=== PATIENT | female | born 1945 | race Caucasian/White ===

== ENCOUNTER → 2017-05-23 | Outpatient (CLI) | payer MEDICARE, OTHER | LOC: MC.RAD 08:04 | DX: Z12.31 Encounter for screening mammogram for malignant neoplasm of breast (principal); N64.89 Other specified disorders of breast ==

== ENCOUNTER → 2017-06-06 | Outpatient (CLI) | payer MEDICARE, OTHER | LOC: MC.RAD 07:17 | DX: N64.89 Other specified disorders of breast (principal) ==

== ENCOUNTER → 2018-07-31 | Outpatient (CLI) | payer MEDICARE, OTHER | LOC: MC.RAD 07:15 | DX: Z00.00 Encounter for general adult medical examination without abnormal findings (principal); Z12.31 Encounter for screening mammogram for malignant neoplasm of breast ==

== ENCOUNTER → 2019-09-27 | Outpatient (CLI) | payer MEDICARE, OTHER | LOC: COL.PUL 16:39 | DX: R42 Dizziness and giddiness (principal); R25.1 Tremor, unspecified ==

== ENCOUNTER → 2019-11-19 | Outpatient (CLI) | payer MEDICARE, OTHER | LOC: COL.RAD 06:49 | DX: Z01.812 Encounter for preprocedural laboratory examination (principal); G31.9 Degenerative disease of nervous system, unspecified | CPT/HCPCS: A9585 ==

== ENCOUNTER → 2020-02-04 | Outpatient (CLI) | payer MEDICARE, OTHER | LOC: COL.RAD 09:04 | DX: S43.492A Other sprain of left shoulder joint, initial encounter (principal); M19.012 Primary osteoarthritis, left shoulder; M75.82 Other shoulder lesions, left shoulder ==

== ENCOUNTER 2020-12-26 13:22 | Emergency (ER) | payer MEDICARE, OTHER ==
[~2020-12-26] VITALS: Ht 172.7 cm; Wt 65.9 kg
[2020-12-26 14:10] LABS: BASO % 0.6 % (0.0-2.0); EOS # 0.1 (0.0-0.7); EOS % 0.9 % (0-4.0); GRAN # 4.2 (1.4-6.5); GRAN % 60.8 % (42.2-75.2); HEMOGLOBIN 11.5 g/dl (12.5-16.0); LYMPH # 2.1 (1.2-3.4); LYMPH % 30.6 % (20.0-51.0); MEAN CELL VOLUME 96 fl (80.0-100.0); MEAN CORPUSCULAR HEMOGLOBIN 31 pg (27.0-31.0); MEAN CORPUSCULAR HGB CONC 32 g/dl (33.0-37.0); MEAN PLATELET VOLUME 10.9 fl (7.4-10.4); MONO # 0.5 (0.1-0.6); MONO % 6.8 % (1.7-9.3); PLATELET COUNT 223 K/mm3 (130-400); RED BLOOD COUNT 3.74 M/mm3 (4.10-5.30); REDCELL DISTRIBUTION WIDTH-CV 12.4 % (11.5-14.5)
[2020-12-26 14:11] LABS: HEMATOCRIT 35.8 % (37.0-47.0)
[2020-12-26 14:12] LABS: COLLECTION METHOD CLEAN CATCH
[2020-12-26 14:12] LABS: PROTHROMBIN TIME 11.5 SECONDS (9.7-12.8)
[2020-12-26 14:15] LABS: ALBUMIN 4.4 gm/dL (3.5-5.0); BILIRUBIN,TOTAL 0.4 mg/dL (0.0-1.0); CALCIUM 10.2 mg/dL (8.4-10.2); CREATININE, serum 1.31 (0.52-1.25); PARTIAL THROMBOPLASTIN TIME 32.1 SECONDS (26.0-37.0); TOTAL PROTEIN 7.8 gm/dL (6.4-8.2)
[2020-12-26 14:19] LABS: POTASSIUM 4.6 mmol/L (3.4-5.0)
[2020-12-26 14:21] LABS: MUCOUS Present /lpf; PH 5 (5-8); SQUAMOUS EPITHELIAL 0-2 /hpf; URINE APPEARANCE Cloudy; URINE BACTERIA None Seen /hpf; URINE BILIRUBIN Negative (NEGATIVE); URINE BLOOD Negative (NEGATIVE); URINE COLOR Yellow; URINE GLUCOSE Negative (NEGATIVE); URINE KETONE Trace (NEGATIVE); URINE LEUKOCYTE ESTERASE Negative (NEGATIVE); URINE NITRATE Negative (NEGATIVE); URINE PROTEIN(semi-quant) Negative (NEGATIVE); URINE RBC >50 /hpf; URINE UROBILINOGEN Negative (NEGATIVE)
[2020-12-26] MEDS ORDERED: CEPHALEXIN500 M1 PO (15:18)
[2020-12-26 15:30] VITALS: BP 178/63; PULSE 63; TEMP 97.2
== END 2020-12-26 15:47 | disposition home or self-care (01) ==
LOC: COL.ER 13:22
PROVIDERS: Emergency Medicine
DX: N39.0 Urinary tract infection, site not specified (principal); R41.82 Altered mental status, unspecified; Z88.2 Allergy status to sulfonamides
CPT/HCPCS: J0696

== ENCOUNTER 2021-03-10 09:32 | Outpatient (CLI) | payer MEDICARE, OTHER ==
[2021-03-10] VITALS (9 sets, daily range): BP systolic 124–154; BP diastolic 52–66; PULSE 36–75
[~2021-03-10] VITALS: Ht 172.7 cm; Wt 61.5 kg
[~2021-03-10 09:32] MED LIST: CEPHALEXIN500 M1 PO
[2021-03-10] MEDS ORDERED: GLUCOPHAGE1000 MG PO (09:55)
[2021-03-10] MEDS ORDERED: TENORMIN 5050 MG/TAB PO (09:55)
[2021-03-10] MEDS ORDERED: LIPITOR 80MG80 MG PO (09:56)
[2021-03-10] MEDS ORDERED: CALCIUM CARBON650 M2 PO (09:56)
[2021-03-10 11:39] LABS: GLUCOSE,CSF 59 mg/dL (40-70)
[2021-03-10 12:17] LABS: CSF APPEARANCE CLEAR; CSF COLOR COLORLESS
[2021-03-10 12:18] LABS: CSF RBC 65 /mm3 (0-0)
[2021-03-10 12:46] LABS: CSF MONONUCLEAR 75 % (70-100); CSF POLYMORPHONUCLEAR 25 % (0-6)
[2021-03-13 13:02] LABS: CSF OLIG BD INTERPRETATION 0 bands (<2); SE OLIGOCLONAL BANDING 1 bands (())
== END 2021-03-10 15:52 | disposition home or self-care (01) ==
LOC: COL.RAD 09:32
PROVIDERS: Psychiatry & Neurology Neurology
DX: R41.82 Altered mental status, unspecified (principal)

== ENCOUNTER 2021-04-30 06:55 | Outpatient (CLI) | payer MEDICARE, OTHER ==
[~2021-04-30] VITALS: Ht 172.7 cm; Wt 63.3 kg
[~2021-04-30 06:55] MED LIST changes: +CALCIUM CARBON650 M2 PO; +GLUCOPHAGE1000 MG PO; +LIPITOR 80MG80 MG PO; +TENORMIN 5050 MG/TAB PO
[2021-04-30] MEDS ORDERED: ASPI325T6 PO (08:12)
[2021-04-30] MEDS ORDERED: ARICEPT 5MG PO (08:12)
[2021-04-30] MEDS ORDERED: VITAMIN B11000 MCG/M IM (08:13)
[2021-04-30 08:21] LABS: MEAN CELL VOLUME 98 fl (80.0-100.0); MEAN CORPUSCULAR HGB CONC 31 g/dl (33.0-37.0); MEAN PLATELET VOLUME 10.4 fl (7.4-10.4); PLATELET COUNT 258 K/mm3 (130-400); REDCELL DISTRIBUTION WIDTH-CV 13.4 % (11.5-14.5)
[2021-04-30 08:25] VITALS: BP 153/71; PULSE 64; TEMP 98
[2021-04-30 08:25] LABS: HEMATOCRIT 31.3 % (37.0-47.0); HEMOGLOBIN 9.8 g/dl (12.5-16.0); MEAN CORPUSCULAR HEMOGLOBIN 31 pg (27.0-31.0)
[2021-04-30 08:28] LABS: PROTHROMBIN TIME 11.2 SECONDS (9.7-12.8)
[2021-04-30 08:37] LABS: ALANINE AMINOTRANSFERASE 23 U/L (4-34); ALBUMIN 3.7 gm/dL (3.5-5.0); ALKALINE PHOSPHATASE 90 U/L (50-136); ANION GAP 6 mmol/L (7-16); AST,SGOT 31 U/L (15-37); BILIRUBIN,TOTAL 0.4 mg/dL (0.0-1.0); BLOOD UREA NITROGEN 23 mg/dL (7-17); CALCIUM 9.5 mg/dL (8.4-10.2); CARBON DIOXIDE 30 mmol/L (22-30); CHLORIDE 102 mmol/L (98-107); CREATININE, serum 1.09 (0.52-1.25); GLUCOSE 100 mg/dL (74-106); MAGNESIUM 1.1 mg/dL (1.6-2.3); POTASSIUM 5.1 mmol/L (3.4-5.0); SODIUM 137 mmol/L (137-145); TOTAL PROTEIN 6.5 gm/dL (6.4-8.2)
[2021-04-30] MEDS ORDERED: CEPHALEXIN500 M1 PO (09:37)
[2021-04-30 10:15] VITALS: BP 155/65; PULSE 59
[2021-04-30 10:30] VITALS: BP 168/59; PULSE 59
[2021-04-30 10:45] VITALS: BP 157/68; PULSE 59
--- NOTE | 2021-04-30 10:48 | NUR ---
DC instructions reviewed with pt and daughter. Both express understanding. Dressing to loop implant site remains clean, dry and intact. Pt has tolerated juice and crackers without difficulty. Pt steady on feet. INT DC'd with catheter intact. Pt assisted out to daughter's car by wheelchair with belongings.
== END 2021-04-30 10:48 | disposition home or self-care (01) ==
LOC: COL.RAD 06:55
PROVIDERS: Internal Medicine Adult Congenital Heart Disease
DX: G45.9 Transient cerebral ischemic attack, unspecified (principal); Z20.822 Contact with and (suspected) exposure to COVID-19
CPT/HCPCS: C1764; J2704

== ENCOUNTER 2022-01-06 08:51 | Emergency (ER) | payer MEDICARE, OTHER ==
[~2022-01-06] VITALS: Ht 172.7 cm; Wt 65.9 kg
[~2022-01-06 08:51] MED LIST changes: +ARICEPT 5MG PO; +ASPI325T6 PO; +VITAMIN B11000 MCG/M IM
[2022-01-06 08:59] VITALS: TEMP 97.6
[2022-01-06 09:31] LABS: BASO % 0.5 % (0.0-2.0); EOS # 0.1 K/mm3 (0.0-0.7); EOS % 1.6 % (0.0-4.0); GRAN # 5.5 K/mm3 (1.4-6.5); GRAN % 68.9 % (42.2-75.2); HEMOGLOBIN 11.8 g/dl (12.5-16.0); LYMPH # 1.9 K/mm3 (1.2-3.4); LYMPH % 23.2 % (20.0-51.0); MEAN CELL VOLUME 91 fl (80.0-100.0); MEAN CORPUSCULAR HEMOGLOBIN 30 pg (27-31); MEAN CORPUSCULAR HGB CONC 33 g/dl (33.0-37.0); MEAN PLATELET VOLUME 9.9 fl (7.4-10.4); MONO # 0.5 K/mm3 (0.1-0.6); MONO % 5.6 % (1.7-9.3); PLATELET COUNT 226 K/mm3 (130-400); RED BLOOD COUNT 3.91 M/mm3 (4.10-5.30); REDCELL DISTRIBUTION WIDTH-CV 12.3 % (11.5-14.5)
[2022-01-06 09:32] LABS: HEMATOCRIT 35.7 % (37.0-47.0)
[2022-01-06 09:46] LABS: ALBUMIN 4.1 gm/dL (3.4-4.8); BILIRUBIN,TOTAL 0.5 mg/dL (0.2-1.2); C-REACTIVE PROTEIN 0.04 mg/dL (0.00-0.50); CALCIUM 9.7 mg/dL (8.4-10.2); CREATININE, serum 1.69 mg/dL (0.57-1.11); POTASSIUM 4.2 mmol/L (3.5-4.5)
[2022-01-06 10:06] LABS: COLLECTION METHOD CLEAN CATCH
[2022-01-06 10:19] LABS: PH 5 (5-8); SQUAMOUS EPITHELIAL 0-2 /hpf (0-10); URINE APPEARANCE Clear (CLEAR/HAZY); URINE BACTERIA None Seen /hpf (NONE SEEN); URINE BILIRUBIN Negative (NEGATIVE); URINE BLOOD 3+ (NEGATIVE); URINE COLOR Yellow (YELLOW); URINE GLUCOSE Negative (NEGATIVE); URINE KETONE Negative (NEGATIVE); URINE LEUKOCYTE ESTERASE Negative (NEGATIVE); URINE NITRATE Negative (NEGATIVE); URINE PROTEIN(semi-quant) Negative (NEGATIVE); URINE RBC >50 /hpf (0-2); URINE UROBILINOGEN Negative (NEGATIVE)
[2022-01-06] MEDS ORDERED: NORCO 325 MG-51 TAB PO (11:20)
[2022-01-06 11:34] VITALS: BP 179/92; PULSE 71
== END 2022-01-06 11:34 | disposition home or self-care (01) ==
LOC: COL.ER 08:51
PROVIDERS: Family Medicine
DX: N13.2 Hydronephrosis with renal and ureteral calculous obstruction (principal)
CPT/HCPCS: J2405; J7120

== ENCOUNTER 2022-01-22 05:38 | Day surgery (SDC) | payer MEDICARE, OTHER ==
[2022-01-22] VITALS (7 sets, daily range): BP systolic 145–211; BP diastolic 64–81; PULSE 51–76; TEMP 97.2–97.5
[~2022-01-22] VITALS: Ht 175.3 cm; Wt 66.3 kg
[~2022-01-22 05:38] MED LIST changes: +CALCIUM 600600 MG PO; -CALCIUM CARBON650 M2 PO; +NORCO 325 MG-51 TAB PO
[2022-01-22] MEDS ORDERED: ZOCOR 10MG10 MG PO (06:27)
[2022-01-22] MEDS ORDERED: NAMENDA 10MG TA10 MG PO (06:27)
--- NOTE | 2022-01-22 09:10 | NUR ---
The patient arrived back to [facility] from the recovery room at this time. The patient appears drowsy but arouses easily to her name. The patient voices a need to urinate and was assisted up to the bedside commode by 2 nurses and appeared to tolerate the activity well. The patient voided without difficulty. The patient does report some increased pain in her left flank and was educated that this is from the stent that was placed. Post operative vital signs were started at this time. The patient denies wanting anything further to eat or drink other that the water she brought over from the PACU. The patient's urine after using the commode was reddish in color but clear/without any clots.
--- NOTE | 2022-01-22 09:25 | NUR ---
The patient appears to be tolerating the water well. The patient's blood pressure has been increasing but is still within her baseline admission vitals.
--- NOTE | 2022-01-22 09:40 | NUR ---
The patient reports feeling cold and was given a warm tea to try at this time. The patient's blood pressure continues to increase. She did take her home dose of Atenolol this morning prior to admission.
--- NOTE | 2022-01-22 09:55 | NUR ---
The patient has been up to the bedside commode several times and continues to void without difficulty. The patient appears to be tolerating the tea well and denies wanting anything further at this time.
--- NOTE | 2022-01-22 10:25 | NUR ---
The patient continues to report intermittent left flank pain. The patient's daughter remains at her bedside. The patient's blood pressure has continued to rise. The nurse discussed with the patient and her daughter that they need to make her primary care physician aware of the patient's increased blood pressure. They verbalized understanding.
--- NOTE | 2022-01-22 10:30 | NUR ---
Mick, [employer] OPERATOR was notified of the patient's increased blood pressure and orders were obtained to treat the blood pressure with the hydralizine ordered post operatively.
--- NOTE | 2022-01-22 10:50 | NUR ---
The patient was given a PRN dose of Hydralazine 5 mg IV at this time. Blood pressure is to be rechecked in 10-15 minutes.
--- NOTE | 2022-01-22 10:50 | NUR ---
The patient was given a repeat dose of Hydralazine 5 mg IV at this time. The patient agrees to try a muffin at this time.
--- NOTE | 2022-01-22 11:30 | NUR ---
The patient's blood pressure was rechecked with a result of 172/58.
--- NOTE | 2022-01-22 11:55 | NUR ---
The patient's IV to her left hand was removed and a pressure dressing was applied to the site. The nurse also administered Motrin 600 mg PO for the discmfort she has been experiencing in her left flank area.
--- NOTE | 2022-01-22 12:05 | NUR ---
Discharge instructions were reviewed with the patient and her daughter. They both verbalize understanding and have no questions at this time. The nurse encouraged them again to notify the patient's primary care physician about the patient's blood pressure. The patient is dressed and ready to be escorted out.
--- NOTE | 2022-01-22 12:15 | NUR ---
The patient was escorted out via wheelchair to a private vehicle by WILBER Dill. The patient's belongings and discharge paperwork were sent with her. The patient's daughter is present to dirve her home.
== END 2022-01-22 12:15 | disposition home or self-care (01) ==
LOC: SDCO 05:38
DX: N20.2 Calculus of kidney with calculus of ureter (principal); M54.50 Low back pain, unspecified
CPT/HCPCS: C1769; C2617; J0360; J1940; J2405; J2704; J7120; Q9967

== ENCOUNTER → 2022-05-03 | Outpatient (CLI) | payer MEDICARE, OTHER ==
[~2022-05-03] MED LIST changes: +NAMENDA 10MG TA10 MG PO; +ZOCOR 10MG10 MG PO
== END ==
LOC: COL.RAD 07:40
DX: I67.82 Cerebral ischemia (principal); G31.9 Degenerative disease of nervous system, unspecified
CPT/HCPCS: A9575